=== PATIENT | female | born 2000 | race Caucasian/White ===

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

== ENCOUNTER 2020-09-13 09:42 | Emergency (ER) | payer OTHER ==
[~2020-09-13] VITALS: Ht 162.6 cm; Wt 79.4 kg
[~2020-09-13 09:42] MED LIST changes: +MONO-LINYAH1 EACH PO; +OMEP20ER PO
[2020-09-13] MEDS ORDERED: NEXPLANON68 MG SQ (10:05)
[2020-09-13] MEDS ORDERED: Benadryl 50 mg50 MG PO (10:44)
[2020-09-13] MEDS ORDERED: Prednisone20 MG PO (10:44)
[2020-09-13] MEDS ORDERED: Cipro500 MG PO (11:00)
== END 2020-09-13 11:07 | disposition home or self-care (01) ==
LOC: ER 09:42
DX: L29.9 Pruritus, unspecified (principal); T36.8X5A Adverse effect of other systemic antibiotics, initial encounter; K04.7 Periapical abscess without sinus; Z88.0 Allergy status to penicillin; Z88.1 Allergy status to other antibiotic agents; Z88.8 Allergy status to other drugs, medicaments and biological substances
CPT/HCPCS: 99283; A9270; J7512

== ENCOUNTER 2022-10-26 18:23 | Emergency (ER) | payer OTHER ==
[~2022-10-26] VITALS: Ht 160 cm; Wt 77.1 kg
[~2022-10-26 18:23] MED LIST changes: +Cipro500 MG PO; +NEXPLANON68 MG SQ
[2022-10-26 18:36] VITALS: BP 146/78
== END 2022-10-26 19:53 | disposition home or self-care (01) ==
LOC: ER 18:23
DX: J06.9 Acute upper respiratory infection, unspecified (principal); Z91.018 Allergy to other foods; Z88.0 Allergy status to penicillin; Z88.1 Allergy status to other antibiotic agents; Z88.7 Allergy status to serum and vaccine
CPT/HCPCS: 87081; 87147; 87430; 99283

== ENCOUNTER 2023-11-02 17:57 | Emergency (ER) | payer OTHER ==
[~2023-11-02] VITALS: Ht 162.6 cm; Wt 86.2 kg
[2023-11-02 18:04] VITALS: BP 172/116
== END 2023-11-02 21:15 | disposition home or self-care (01) ==
LOC: ER 17:57
DX: S93.402A Sprain of unspecified ligament of left ankle, initial encounter (principal); X50.1XXA Overexertion from prolonged static or awkward postures, initial encounter; Z88.0 Allergy status to penicillin; Z91.018 Allergy to other foods; Z88.1 Allergy status to other antibiotic agents; Z88.7 Allergy status to serum and vaccine

== ENCOUNTER 2025-01-15 22:03 | Emergency (ER) | payer OTHER ==
[~2025-01-15] VITALS: Ht 162.6 cm; Wt 84.8 kg
[2025-01-15] MEDS ORDERED: Morphine Sulfate 4 MG/1 ML Injection IV ONE (22:40)
[2025-01-15] MEDS ORDERED: Ondansetron HCl 2 MG / ML 2ML Vial IV ONE (22:40)
[2025-01-15 22:44] LABS: BASOPHILS ABSOLUTE AUTO 0.04 K/mm3 (0.00-0.23); BASOPHILS PERCENT AUTO 0 % (0-2); EOSINOPHILS ABSOLUTE AUTO 0.43 K/mm3 (0.00-0.68); EOSINOPHILS PERCENT AUTO 3 % (0-6); Hematocrit 50.4 % (33.0-51.0); Hemoglobin 16.9 g/dL (11.5-16.0); IMMATURE GRAN ABSOLUTE AUTO 0.04 K/mm3 (0.00-0.10); IMMATURE GRAN PERCENT AUTO 0 % (0-1); LYMPHOCYTES ABSOLUTE AUTO 2.36 K/mm3 (0.84-5.20); LYMPHOCYTES PERCENT AUTO 15 % (21-46); MONOCYTES ABSOLUTE AUTO 0.84 K/mm3 (0.16-1.47); MONOCYTES PERCENT AUTO 5 % (4-13); Mean Corpuscular HGB Conc 33.5 g/dL (31.5-36.5); Mean Corpuscular Volume 84 fL (80-100); NEUTROPHILS ABSOLUTE AUTO 12.08 K/mm3 (1.96-9.15); NEUTROPHILS PERCENT AUTO 77 % (41-73); NRBC ABSOLUTE 0.00 K/mm3 (0.00-0.02); NRBC Auto 0.0 /100 WBC (0.0-0.2); Platelet Count 273 K/mm3 (150-400); RDW Coefficient Variation 13.3 % (11.7-14.2); RDW Standard Deviation 41.4 fL (35.1-46.3)
[2025-01-15 22:57] LABS: Alanine Aminotransfer (ALT/SGP 33.0 U/L (12-78); Albumin, Blood 3.7 g/dL (3.4-5.0); Albumin/Globulin Ratio 0.9 (0.8-1.8); Anion Gap 7.0 mmol/L (3-11); Aspartate Aminotrans (AST/SGOT 28.0 U/L (12-37); Bilirubin, Total 0.5 mg/dL (0.1-1.0); Blood Urea Nitrogen 14.0 mg/dL (8-24); CO2, Blood 29.0 mmol/L (21-32); Calcium, Blood 8.5 mg/dL (8.5-10.1); Chloride, Blood 103.0 mmol/L (98-108); Creatinine, Blood 0.66 mg/dL (0.40-1.00); Globulin, Blood 4.3 g/dL (2.2-4.0); Glucose, Blood 109.0 mg/dL (70-99); Potassium, Blood 3.5 mmol/L (3.5-5.5); Sodium, Blood 135.0 mmol/L (136-145); Total Protein, Blood 8.0 g/dL (6.4-8.2)
[2025-01-15] MEDS ORDERED: NS 1,000 ML IV SCH (23:20)
[2025-01-15 23:30] LABS: Source, Urine Clean Catch
[2025-01-15 23:39] LABS: Bilirubin, Urine Neg (Neg); Glucose Qualitative, Urine Neg (Neg); Ketones, Urine Neg (Neg); Leukocyte Esterase, Urine Neg (Neg); Protein, Urine 1+ (Neg); Specific Gravity, Urine 1.025 (1.003-1.022); Urobilinogen, Urine 2+ (Normal)
[2025-01-15 23:45] LABS: Color, Urine Yellow (P-Yellow)
[2025-01-15 23:46] LABS: Red Blood Cells, Urine Not Seen /hpf (0-2); White Blood Cells, Urine 0-2 /hpf (0-5)
[2025-01-16 01:30] VITALS: BP 109/66
== END 2025-01-16 01:50 | disposition home or self-care (01) ==
LOC: ER 22:03
PROVIDERS: Student in an Organized Health Care Education/Training Program
DX: R10.9 Unspecified abdominal pain (principal); M54.50 Low back pain, unspecified; Z88.1 Allergy status to other antibiotic agents; Z88.0 Allergy status to penicillin; Z88.7 Allergy status to serum and vaccine; Z91.018 Allergy to other foods
CPT/HCPCS: 74177; 76705; 80053; 81001; 81025; 83690; 85025; 96374-59; 96375; 99284-25; A9270; J2270; J2405; J7030; Q9967